=== PATIENT | female | born 1985 | race Caucasian/White ===

== ENCOUNTER 2020-05-08 11:35 | Emergency (ER) | payer MEDICAID ==
[~2020-05-08] VITALS: Ht 170.2 cm; Wt 113.6 kg
[2020-05-08 11:39] VITALS: BP 154/93
[2020-05-08] MEDS ORDERED: LIDO20SO16 PO (11:51)
[2020-05-08] MEDS ORDERED: CLIN-142 PO (11:51)
== END 2020-05-08 12:08 | disposition home or self-care (01) ==
LOC: ER 11:36
DX: K08.89 Other specified disorders of teeth and supporting structures (principal); Z90.49 Acquired absence of other specified parts of digestive tract; F12.90 Cannabis use, unspecified, uncomplicated; Z88.0 Allergy status to penicillin; Z79.899 Other long term (current) drug therapy
CPT/HCPCS: 99283

== ENCOUNTER 2020-10-16 20:41 | Emergency (ER) | payer MEDICAID ==
[~2020-10-16] VITALS: Ht 170.2 cm; Wt 106.1 kg
[~2020-10-16 20:41] MED LIST: LIDO20SO16 PO
[2020-10-16 20:46] VITALS: BP 209/124
== END 2020-10-17 02:48 | disposition left against medical advice (07) ==
LOC: ER 20:42
DX: M79.89 Other specified soft tissue disorders (principal); Z53.21 Procedure and treatment not carried out due to patient leaving prior to being seen by health care provider

== ENCOUNTER 2025-01-13 10:58 | Outpatient (CLI) | payer MEDICAID ==
--- NOTE | 2025-01-13 12:52 | RADIOLOGY REPORT ---
CLINICAL HISTORY: PAIN IN RIGHT FOOT. TECHNIQUE: Multi sequence multi planar MRI images of the right midfoot and forefoot were obtained without IV contrast. COMPARISON: None FINDINGS: Hallux valgus deformity with moderate arthritic changes at the 1st MTP joint. Prominent subchondral cystic change at the 1st metatarsal head. Milder valgus deformity at the 2nd MTP joint. Severe arthritic changes at the 2nd tarsometatarsal joint with severe joint space narrowing, subchondral edema, and subchondral cystic change. Moderate arthritic changes are seen at the 3rd and 4th tarsometatarsal joints. There is focal marrow edema in the proximal shaft of the 2nd metatarsal and in the proximal shafts of the 3rd and 4th metatarsals, likely stress related changes/stress injury. No discrete stress fracture demonstrated. Chronic appearing deformity at the base and proximal shaft of the 5th metatarsal, may be sequelae of old trauma. Moderate arthritic changes at the naviculocuneiform joint with joint space narrowing and subchondral edema at the proximal articular surface of the middle cuneiform. Flexor and extensor tendons appear intact. Mild tenosynovitis of the flexor hallucis longus and flexor digitorum longus tendons along their plantar courses to the level of the knot of [place]. Unremarkable appearance of the intrinsic musculature of the foot. IMPRESSION: 1. Marrow edema in the 2nd through 4th metatarsal shafts, likely stress related changes/stress injury in the appropriate clinical setting. No discrete stress fracture identified. Correlate with clinical findings. 2. Severe arthritic changes at the 2nd tarsometatarsal joint and Moderate arthritic changes at the 3rd and 4th tarsometatarsal joints. 3. Moderate arthritic changes at the naviculocuneiform joint. 4. Hallux valgus deformity and moderate arthritic changes at the 1st MTP joint. 5. Mild tenosynovitis of the flexor hallucis longus and flexor digitorum longus tendons along their plantar courses. 6. Additional findings as detailed above.
== END 2025-01-13 23:59 | disposition home or self-care (01) ==
LOC: MRI02 10:58
PROVIDERS: ATTEND Podiatrist Foot & Ankle Surgery
DX: M19.071 Primary osteoarthritis, right ankle and foot (principal); M79.671 Pain in right foot; M20.11 Hallux valgus (acquired), right foot; M65.871 Other synovitis and tenosynovitis, right ankle and foot
CPT/HCPCS: 73721